=== PATIENT | male | born 1975 | race Caucasian/White ===

== ENCOUNTER 2017-03-02 12:36 | Inpatient (IN) | payer MEDICARE, OTHER ==
--- NOTE | ~2017-03-02 | CR229 ---
[facility] A Service of [facility] RADIOLOGY TEXT RESULTS PATIENT: ESPINOZA PHAM LOCATION: [facility] : 73 UNIT #: [id number] AGE: [address]: Candelario Russell MD SEX: M ORDER DR: [id number] [facility] [address] [place], [place] [address] [id number] E MR#: [id number] Acc #: [id number] NAME: ESPINOZA PHAM. : 1975 SEX: M STUDY DATE/TIME: 03/02/2017 12:25 UNIT: [place] ROOM: STUDY DESCRIPTION: CR Shoulder Min 2 View Lt Attending Physician: Hair Resendez D.O. Ordering Physician: Hair Resendez D.O. [facility] REPORT This report is preliminary unless electronic signature is present EXAM 2 views left shoulder. DATE 03/02/2017 HISTORY Left shoulder pain, chest pain and shortness of breath for 3 weeks. No known injury. Myocardial infarction last year. FINDINGS AP view with internal and external rotation of the shoulder girdle shows satisfactory relationship of the humeral head and glenoid fossa. The joint space is normal. There is no identifiable fracture or dislocation or bony destructive process about the shoulder girdle anatomy. The acromioclavicular joint is normal. There is no radiopaque foreign body in the region. IMPRESSION Normal shoulder. Dictated by... Erica Hughes M.D. THIS IS AN ELECTRONICALLY VERIFIED REPORT Erica Hughes M.D. at 03/03/2017 7:04 AM MICHAEL/louis TD: 03/02/2017 14:23 JOB #: [id number] MEDICAL IMAGING REPORT [facility] A Service of [facility] RADIOLOGY TEXT RESULTS PATIENT: ESPINOZA PHAM LOCATION: [facility] : 73 UNIT #: [id number] AGE: [address]: Candelario Russell MD SEX: M ORDER DR: Page 1 of 1 COPY
--- NOTE | ~2017-03-02 | EKG ---
PATIENT: ESPINOZA PHAM UNIT #: [id number] Ventricular Rate: 64 BPM Atrial Rate: 64 BPM P-R Interval: 134 ms QRS Duration: 84 ms Q-T Interval: 384 ms QTC Calculation(Bezet): 396 ms P [place]: 27 degrees Calculated R [place]: -37 degrees Calculated T [place]: 12 degrees Diagnosis Line: Normal sinus rhythm Diagnosis Line: Left axis deviation Diagnosis Line: Abnormal ECG Diagnosis Line: Diagnosis Line: Confirmed by LUDWIG CASE MD ([id number]) on 03/03/2017 Diagnosis Line: 7:57:16 PM INTERPRETING MD: EVIE CALIXTO
--- NOTE | ~2017-03-02 | CR72 ---
[facility] A Service of [facility] RADIOLOGY TEXT RESULTS PATIENT: ESPINOZA PHAM LOCATION: [facility] : 73 UNIT #: [id number] AGE: [address]: Candelario Russell MD SEX: M ORDER DR: [id number] [facility] [address]. [place], [place] [address] [id number] E MR#: [id number] Acc #: [id number] NAME: ESPINOZA PHAM. : 1975 SEX: M STUDY DATE/TIME: 03/02/2017 12:24 UNIT: [place] ROOM: STUDY DESCRIPTION: CR Chest Single View Portable Attending Physician: Hair Resendez D.O. Ordering Physician: Hair Resendez D.O. Primary Care Physician: [facility]. MEDICAL IMAGING REPORT This report is preliminary unless electronic signature is present EXAMINATION AP portable chest. DATE 03/02/2017 at 12:24. HISTORY Left shoulder pain, chest pain and shortness breath for 3 weeks. No known injury. Previous myocardial infarction last year. COMPARISON AP portable chest, 12/19/2016. FINDINGS Heart size is within normal limits. Lungs appear free of acute airspace disease. No pleural effusion or pneumothorax is identified. Presumed intrathecal stimulator leads project over the lower chest. There are surgical changes in the cervical spine. IMPRESSION 1. No acute cardiopulmonary findings. No significant change compared to 12/18/2016. Dictated by... Erica Hughes M.D. THIS IS AN ELECTRONICALLY VERIFIED REPORT Erica Hughes M.D. at 03/03/2017 7:04 AM LLH/corey TD: 03/02/2017 14:14 JOB #: [id number] [facility] A Service of [facility] & [facility] RADIOLOGY TEXT RESULTS PATIENT: ESPINOZA PHAM LOCATION: [facility] : 73 UNIT #: [id number] AGE: [address]: Candelario Russell MD SEX: M ORDER DR: MEDICAL IMAGING REPORT Page 1 of 1 COPY
--- NOTE | ~2017-03-02 | CT52 ---
[facility] A Service of [facility] RADIOLOGY TEXT RESULTS PATIENT: ESPINOZA PHAM LOCATION: [facility] : 73 UNIT #: [id number] AGE: [address]: Hair Resendez DO SEX: M ORDER DR: [id number] [facility] [address] [place], [place] [address] [id number] E MR#: [id number] Acc #: [id number] NAME: ESPINOZA PHAM. : 1975 SEX: M STUDY DATE/TIME: 03/02/2017 12:11 UNIT: [facility] ROOM: STUDY DESCRIPTION: CT Cervical Spine Wo Cont Attending Physician: Hair Resendez D.O. Ordering Physician: Hair Resendez D.O. Primary Care Physician: [facility] REPORT This report is preliminary unless electronic signature is present EXAM Cervical spine CT no contrast, 03/02/2017 PROCEDURE Axial unenhanced cervical spine CT with multiplanar reformats. This CT exam was performed with one or more of the following radiation dose reduction techniques: automatic exposure control, adjustment of mA and/or kV according to patient size, and iterative reconstruction. CLINICAL HISTORY Neck and left shoulder pain since last night. No known injury. COMPARISON None FINDINGS There is a midcervical reversal of lordosis. There has been previous anterior fusion at 5-6 and there is solid osseous union across the 5-6 disc. There is no mavis or retrolisthesis or evidence of fracture or bone erosion or destruction at any level. There is mild thyromegaly but the adjacent soft tissues are otherwise normal. There is mild degenerative change but there is no more than mild canal or foraminal narrowing at any level. IMPRESSION Mild degenerative change as well as postoperative changes. No acute abnormality. No more than mild canal or foraminal narrowing at any level. Dictated by... Tanmay Yancey M.D. [facility] A Service of [facility] RADIOLOGY TEXT RESULTS PATIENT: ESPINOZA PHAM LOCATION: [facility] : 73 UNIT #: [id number] AGE: [address]: Hair Resendez DO SEX: M ORDER DR: THIS IS AN ELECTRONICALLY VERIFIED REPORT Tanmay Yancey M.D. at 03/02/2017 5:02 PM Katia TD: 03/02/2017 13:41 JOB #: [id number] MEDICAL IMAGING REPORT Page 1 of 1 COPY
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
[~2017-03-02 12:36] MED LIST: ALBUTEROL17 GM INH; ALLOPURINOL300 MG PO; ALPRAZOLAM PO; AMOXIL500 MG PO; ASPIRIN EC81 M1 PO; ASPIRIN81 MG PO; AUGMENTIN PO; BACLOFEN10 MG PO; BACLOFEN20 M1 PO; BACLOFEN20 MG; BACLOFEN20 MG PO; CHANTIX1 MG PO; CIPRO PO; CLEOCIN PO; CLOPIDOGREL BIS75 MG PO; CLOPIDOGREL75 MG PO; DEPAKOTE ER PO; DESYREL100 MG PO; DIAZEPAM; DOXEPIN PO; GABAPENTIN800 MG PO; HYDROCODON-ACE1 EAC3 PO; HYDROCODON-ACE1 EAC5 PO; HYDROCODONE-APA1 T30 PO; HYDROCODONE-APA1 T54 PO; IBUPROFEN PO; IBUPROFEN800 MG PO; INDOMETHACIN50 MG PO; K-DUR20 ME1; KEFLEX500 MG PO; KLONOPIN PO; KLONOPIN1 MG PO; LISINOPRIL5 MG PO; LOPID600 MG PO; METOPROLOL SUCC25 MG PO; MOTRIN600 MG PO; NAPROSYN500 MG PO; NEURONTIN PO; NEURONTIN800 MG PO; NEXIUM PO; NIACIN PO; NIASPAN PO; NORCO 10-325 TA1 TAB PO; NORCO 10/325 TA1 TAB PO; NORVASC PO; OXYCODON HCL-1 UDTA1 PO; PEN-VEE K PO; PERCOCET 10/3251 TAB PO; PHENERGAN PO; PHENERGAN25 M1 DOB; PREDNISONE PO; PREDNISONE1 MG PO; PREDNISONE10 MG PO; PRILOSEC PO; PRILOSEC20 MG PO; PRINIVIL5 MG PO; PROTONIX PO; PYRIDIUM100 MG PO; ROBITUSSIN A-C S5 ML PO; SEROQUEL PO; SEROQUEL25 MG PO; SEROQUEL300 MG PO; SOMA PO; TAMIFLU75 MG PO; TRAZODONE HCL100 MG PO; TRAZODONE PO; VICODIN ES 7.51 EAC1 PO; VOLTAREN75 MG PO; ZITHROMAX1 G/PKT PO; ZOFRAN PO; [UNRECOGNIZED DRUG - CODE] PO; [UNRECOGNIZED DRUG - OTHER]
[2017-03-02 13:39] LABS: BASOPHIL# 0.1 X10e3 (0-0.3); BASOPHIL% 0.5 % (0-2.5); EOSINOPHIL# 0.1 X10e3 (0-0.7); EOSINOPHIL% 0.5 % (0.0-7.0); HEMATOCRIT 46.1 % (38.0-50.0); HEMOGLOBIN 15.1 gm/dL (13.0-16.0); LYMPHOCYTE# 2.1 X10e3 (1.0-3.5); LYMPHOCYTE% 15.8 % (17.0-45.0); MEAN CELL VOLUME 90.7 FL (83-96); MEAN CORPUSCULAR HEMOGLOBIN 29.8 PG (28-34); MEAN CORPUSCULAR HGB CONC 32.9 g/dL (30-36); MEAN PLATELET VOLUME 8.1 FL (6.5-11.5); MONOCYTE# 0.6 X10e3 (0-1.0); MONOCYTE% 4.8 % (3.0-12.0); NEUTROPHIL# 10.5 X10e3 (1.5-7.1); NEUTROPHIL% 78.4 % (40-75); PLATELET COUNT 188 X10e3 (140-420); RED BLOOD COUNT 5.08 X10e (3.90-5.60); RED CELL DISTRIBUTION WIDTH 13.7 % (11.0-15.5); WHITE BLOOD COUNT 13.4 X10e3 (4.0-10.5)
[2017-03-02 13:40] LABS: DIFF IND NO
[2017-03-02 13:40] LABS: POC - CKMB <1.0 ng/mL (0.0-7.9); POC - TROPONIN <0.05 ng/mL (<=0.05)
[2017-03-02 13:52] LABS: PARTIAL THROMBOPLASTIN TIME 25.8 SECONDS (23.5-31.3)
[2017-03-02 14:10] LABS: BUN/CREATININE RATIO 13.63; CALCIUM SERUM 8.6 mg/dL (8.4-10.2); CREATININE SERUM 1.1 mg/dL (0.6-1.4); GLOM FILT RATE Estimated 82.4 mL/min (>60); POTASSIUM 3.8 mmol/L (3.5-5.1)
[2017-03-02 15:32] LABS: POC - CKMB <1.0 ng/mL (0.0-7.9); POC - TROPONIN <0.05 ng/mL (<=0.05)
[2017-03-02] MEDS ORDERED: BACLOFEN20 M1 PO (16:48)
[2017-03-02] MEDS ORDERED: TRAZODONE HCL100 MG PO (16:49)
[2017-06-23] MEDS ORDERED: NEXIUM40 M1 (09:44)
[2017-06-23] MEDS ORDERED: NEURONTIN800 MG (09:44)
[2017-06-23] MEDS ORDERED: QUETIAPINE FUM400 M1 (09:45)
[2017-06-23] MEDS ORDERED: OXYCODONE-ACET1 EAC1 PO (09:46)
[2017-06-23] MEDS ORDERED: ROSUVASTATIN CA20 MG (09:47)
== END 2017-03-02 22:17 | disposition left against medical advice (07) | DRG 313 ==
LOC: CED 12:36 → CEDOF 18:15
PROVIDERS: Emergency Medicine
DX: R07.89 Other chest pain (principal); I25.10 Atherosclerotic heart disease of native coronary artery without angina pectoris; F25.9 Schizoaffective disorder, unspecified; I10 Essential (primary) hypertension; M25.512 Pain in left shoulder; K21.9 Gastro-esophageal reflux disease without esophagitis; F17.210 Nicotine dependence, cigarettes, uncomplicated; Z95.5 Presence of coronary angioplasty implant and graft; Z91.19 Patient's noncompliance with other medical treatment and regimen; G47.33 Obstructive sleep apnea (adult) (pediatric); Z87.442 Personal history of urinary calculi; Z88.8 Allergy status to other drugs, medicaments and biological substances; Z79.82 Long term (current) use of aspirin; L27.0 Generalized skin eruption due to drugs and medicaments taken internally; T46.6X5A Adverse effect of antihyperlipidemic and antiarteriosclerotic drugs, initial encounter
CPT/HCPCS: 36415; 71010; 72125; 73030; 80048; 82553; 84484; 85025; 85610; 85730; 93005; 96374; 99285; J1885

== ENCOUNTER → 2017-06-23 | Outpatient (CLI) | payer MEDICARE, OTHER ==
[~2017-06-23] MED LIST changes: +LORTAB 5-325 M1 EACH PO; +NEURONTIN800 MG; +NEXIUM40 M1; +OXYCODONE-ACET1 EAC1 PO; +PHENERGAN25 M1 PO; +QUETIAPINE FUM400 M1; +ROSUVASTATIN CA20 MG; +TYLENOL325 M1 PO
--- NOTE | ~2017-06-23 | EKG ---
PATIENT: ESPINOZA PHAM UNIT #: [id number] Ventricular Rate: 64 BPM Atrial Rate: 64 BPM P-R Interval: 146 ms QRS Duration: 86 ms Q-T Interval: 410 ms QTC Calculation(Bezet): 422 ms P [place]: 25 degrees Calculated R [place]: -37 degrees Calculated T [place]: -5 degrees Diagnosis Line: Normal sinus rhythm Diagnosis Line: Left axis deviation Diagnosis Line: Abnormal ECG Diagnosis Line: When compared with ECG of 02-MAR-2017 11:55, Diagnosis Line: No significant change was found Diagnosis Line: Confirmed by MARGARET GIRALDO MD ([id number]) on Diagnosis Line: 06/24/2017 7:14:48 AM INTERPRETING MD: ENZO CALIXTO
[2017-06-23 11:03] LABS: HEMATOCRIT 47.4 % (38.0-50.0); HEMOGLOBIN 16.3 gm/dL (13.0-16.0); MEAN CELL VOLUME 89.2 FL (83-96); MEAN CORPUSCULAR HEMOGLOBIN 30.5 PG (28-34); MEAN CORPUSCULAR HGB CONC 34.3 g/dL (30-36); RED BLOOD COUNT 5.32 X10e (3.90-5.60); RED CELL DISTRIBUTION WIDTH 13.7 % (11.0-15.5); WHITE BLOOD COUNT 11.7 X10e3 (4.0-10.5)
== END | disposition home or self-care (01) ==
LOC: CAMB 09:00
PROVIDERS: Surgery
DX: Z01.818 Encounter for other preprocedural examination (principal); K40.90 Unilateral inguinal hernia, without obstruction or gangrene, not specified as recurrent
CPT/HCPCS: 36415; 85027; 93005

== ENCOUNTER 2017-06-27 07:09 | Observation (INO) | payer MEDICARE, OTHER ==
[~2017-06-27] VITALS: Ht 162.6 cm; Wt 66.2 kg
--- NOTE | ~2017-06-27 | OR ---
Unit #: [id number] #: [id number] Patient: ESPINOZA PHAM [id number] [address] [place], [place] [address] [id number] Frances MR#: [id number] NAME: ESPINOZA PHAM ROOM: [facility] Date of Procedure: 06/27/2017 Admission Date: 06/27/2017 Surgeon: Raghu Stokes M.D. : 1975 Attending Physician: Raghu Stokes M.D. Primary Care Physician: Fortino Denton M.D. OPERATIVE REPORT PREOPERATIVE DIAGNOSIS Right inguinal hernia. POSTOPERATIVE DIAGNOSIS Direct right inguinal hernia. PROCEDURE PERFORMED Laparoscopic preperitoneal inguinal hernia repair of direct right inguinal hernia. VENEER STAPLER Peter Farrar M.D. ANESTHESIA General anesthesia. ESTIMATED BLOOD LOSS Minimal. IV FLUIDS 800 crystalloid. COMPLICATIONS None. INDICATIONS FOR PROCEDURE The patient is a 41-year-old with a bulge in his right groin consistent with an inguinal hernia. DESCRIPTION OF PROCEDURE The patient was taken to the operating theater and placed in supine position. General anesthesia was induced. The abdomen was prepped and draped. An infraumbilical incision was then made. A small incision was made in the anterior sheath. I created the preperitoneal space in the right side only. A Veress needle was placed intra-abdominally. The abdomen was insufflated to 15 mmHg with CO2. Under direct vision, I placed a 5-mm port. The patient was placed in Trendelenburg. I identified a right-sided direct inguinal hernia. There was no incarceration. No left-sided hernia. The pneumoperitoneum was released. Using the AutoSuture balloon dissection system, I created the preperitoneal space in the right side only. I then placed two 5-mm ports. Unit #: [id number] #: [id number] Patient: ESPINOZA PHAM I dissected the right groin, ran the lateral space, identified the cord. The cord was skeletonized and the peritoneal reflection reduced. The direct defect was reduced partially by creation of the preperitoneal space. Then, I completed the process. I identified Michel ligament. I placed a large 3DMax mesh into position. This was anteriolized and covered the direct and indirect spaces nicely. This was held into place as I released the pneumopreperitoneum with care taken to avoid the peritoneum sliding posterior to the mesh. Hemostasis was adequate. I removed the ports under direct vision and closed with 0 Vicryl to the fascia and 4-0 Vicryl to the skin. The patient tolerated the procedure well and was sent to the recovery room in good condition. Dictated by... Terrence Rios/mike TD: 06/27/2017 13:20 JOB #: [id number] OPERATIVE REPORT Page 1 of 1 X Raghu Stokes MD X PROCEDURE OPERATIVE NOTE
--- NOTE | ~2017-06-27 | EKG ---
PATIENT: ESPINOZA PHAM UNIT #: [id number] Ventricular Rate: 60 BPM Atrial Rate: 60 BPM P-R Interval: 134 ms QRS Duration: 90 ms Q-T Interval: 428 ms QTC Calculation(Bezet): 428 ms P [place]: 56 degrees Calculated R [place]: -29 degrees Calculated T [place]: 13 degrees Diagnosis Line: Normal sinus rhythm Diagnosis Line: Normal ECG Diagnosis Line: When compared with ECG of 23-JUN-2017 09:24, Diagnosis Line: No significant change was found Diagnosis Line: Confirmed by LUDWIG CASE MD ([id number]) on 06/28/2017 Diagnosis Line: 11:38:39 PM INTERPRETING MD: EVIE CALIXTO
[~2017-06-27 07:09] MED LIST changes: -LORTAB 5-325 M1 EACH PO; -PHENERGAN25 M1 PO; -TYLENOL325 M1 PO
[2017-06-27 07:54] LABS: HEMATOCRIT 45.4 % (38.0-50.0); MEAN CELL VOLUME 87.1 FL (83-96); MEAN CORPUSCULAR HEMOGLOBIN 30.6 PG (28-34); MEAN CORPUSCULAR HGB CONC 35.1 g/dL (30-36); MEAN PLATELET VOLUME 7.2 FL (6.5-11.5); RED BLOOD COUNT 5.21 X10e (3.90-5.60); RED CELL DISTRIBUTION WIDTH 13.4 % (11.0-15.5); WHITE BLOOD COUNT 12.8 X10e3 (4.0-10.5)
[2017-06-28] MEDS ORDERED: TYLENOL325 M1 PO (07:40)
[2017-06-28] MEDS ORDERED: LORTAB 5-325 M1 EACH PO (07:54)
[2017-06-28] MEDS ORDERED: PHENERGAN25 M1 PO (07:54)
== END 2017-06-28 09:19 | disposition home or self-care (01) ==
LOC: CSUR 07:09 → C4C 09:52 → CSUR 10:42 → C4C 10:42
PROVIDERS: Surgery
DX: K40.90 Unilateral inguinal hernia, without obstruction or gangrene, not specified as recurrent (principal); K21.9 Gastro-esophageal reflux disease without esophagitis; F17.210 Nicotine dependence, cigarettes, uncomplicated; I25.10 Atherosclerotic heart disease of native coronary artery without angina pectoris; I25.2 Old myocardial infarction; F31.9 Bipolar disorder, unspecified; G47.30 Sleep apnea, unspecified; Z95.5 Presence of coronary angioplasty implant and graft; Z87.442 Personal history of urinary calculi; Z98.1 Arthrodesis status; Z98.890 Other specified postprocedural states; Z88.8 Allergy status to other drugs, medicaments and biological substances; Z79.82 Long term (current) use of aspirin; Z79.01 Long term (current) use of anticoagulants; Z79.899 Other long term (current) drug therapy
CPT/HCPCS: 82947; 84484; 85027; 93005; 94760; 96374; C1781; G0378; J0330; J0690; J2250; J2270; J2405; J2710; J3010